=== PATIENT | male | born 1945 | race Caucasian/White ===

== ENCOUNTER 2017-04-20 07:17 | Day surgery (SDC) | payer MEDICARE ==
[2017-04-20] MEDS ORDERED: Lactated Ringer's 1,000 ML IV ONE (07:45)
[2017-04-20] MEDS ORDERED: Propofol 10 mg/ml Inj (20 ML) ONE (08:12)
[2017-04-20] MEDS ORDERED: Lidocaine 2% MPF (5 ml) Inj ONE (08:12)
[2017-04-20 09:39] VITALS: TEMP 97
[2017-04-20 09:50] VITALS: BP 130/64; PULSE 60; RESP 12; O2SAT 100
== END 2017-04-20 10:45 | disposition home or self-care (01) ==
LOC: H.ENDO 07:17
PROVIDERS: ATTEND Internal Medicine Gastroenterology
DX: Z12.11 Encounter for screening for malignant neoplasm of colon (principal); E11.9 Type 2 diabetes mellitus without complications; E78.5 Hyperlipidemia, unspecified; I10 Essential (primary) hypertension; D12.0 Benign neoplasm of cecum; K57.30 Diverticulosis of large intestine without perforation or abscess without bleeding
CPT/HCPCS: 45380; 82948; 88305; J2704; J7120